=== PATIENT | female | born 1985 | race Caucasian/White ===

== ENCOUNTER 2021-12-24 11:38 | Inpatient (IN) | payer MEDICAID ==
[~2021-12-24] VITALS: Ht 167.6 cm; Wt 93.8 kg
[2021-12-24 13:13] LABS: BASOPHILS % (AUTO) 0.3 % (0-1); EOSINOPHILS % (AUTO) 0.2 % (0-6); HEMATOCRIT 37.8 % (35.0-45.0); HEMOGLOBIN 12.9 g/dl (12.0-16.0); LYMPHOCYTES # (AUTO) 0.6 X10'3 (1.1-4.8); LYMPHOCYTES % (AUTO) 4.9 % (21-51); MEAN CORPUSCULAR HEMOGLOBIN 30.7 PG (27.0-31.0); MEAN CORPUSCULAR HGB CONC 34.1 g/dL (33.0-36.5); MEAN PLATELET VOLUME 7.9 FL (7.4-10.4); MONOCYTES # (AUTO) 0.9 X10'3 (0-0.9); MONOCYTES % (AUTO) 7.9 % (2-12); NEUTROPHILS # (AUTO) 10.2 X10'3 (1.8-7.7); NEUTROPHILS % (AUTO) 86.7 % (42-75); PLATELET COUNT 178 X10'3 (140-440); RED CELL DISTRIBUTION WIDTH 12.9 % (11.5-14.5); WHITE BLOOD COUNT 11.7 X10'3 (4.5-11.0)
[2021-12-24 13:16] LABS: CLARITY,URINE CLEAR (Clear); GLUCOSE, URINE NEGATIVE (Neg); KETONES,URINE NEGATIVE (Neg); LEUKOCYTE ESTERASE ,URINE SMALL (Neg); NITRITES, URINE NEGATIVE (Neg); OCCULT BLOOD,URINE TRACE-INTACT (Neg); PH,URINE 5.5 (4.8-8.0); PROTEIN,URINE NEGATIVE (Neg); URINE HCG NEGATIVE (NEG); UROBILINOGEN,URINE 0.2 E.U/dL (0.2-1.0)
[2021-12-24 13:18] LABS: COLOR,URINE STRAW (Yellow); UA COLLECTION TYPE CLN CATCH MIDSTREAM
[2021-12-24 13:24] LABS: BACTERIA,URINE 1+ /HPF (Neg); MUCUS STRANDS NONE SEEN /LPF (Neg); RBC,URINE 0-2 /HPF (0-2); SQUAMOUS EPITHELIAL CELL,UR FEW /LPF (FEW)
[2021-12-24 13:26] LABS: ALANINE AMINOTRANSFERASE 25 U/L (12-78); ALBUMIN 4.1 G/DL (3.4-5.0); ALBUMIN/GLOBULIN RATIO 1.1 (1.1-1.5); ALKALINE PHOSPHATASE 56 IU/L (46-116); ANION GAP 13 (8-16); ASPARTATE AMINO TRANSFERASE 17 U/L (10-37); BILIRUBIN,TOTAL 0.6 MG/DL (0.1-1.0); BLOOD UREA NITROGEN 9 MG/DL (7-18); CALCIUM 9.1 MG/DL (8.5-10.1); CHLORIDE 104 MMOL/L (99-107); CREATININE 1.13 MG/DL (0.40-0.90); GLUCOSE 112 MG/DL (70-104); LIPASE 50 U/L (73-393); POTASSIUM 3.5 MMOL/L (3.5-5.1); SODIUM 140 MMOL/L (135-145); TOTAL CARBON DIOXIDE 22.8 MMOL/L (24-32); eGFR 54 ML/MIN
[2021-12-24] MEDS ORDERED: morphine 4 MG/ML inj SYRINge IV ONE (15:20)
[2021-12-24] MEDS ORDERED: normal saline 1000ml 1,000 ML IV ONE (15:20)
[2021-12-24] MEDS ORDERED: ondansetron/PF 4mg/2ml inj IV ONE (15:20)
[2021-12-24] MEDS ORDERED: ketorolac trometh. 30mg/ml inj. IV ONE (15:50)
--- NOTE | 2021-12-24 15:54 | NUR ---
LET SUE KNOW MORPHINE WAS NOT EFFECTIVE.
[2021-12-24] MEDS ORDERED: CefTRIAXone/D5W-Rocephin 1gm 50 ML IV ONE (16:10)
[2021-12-24] MEDS ORDERED: normal saline 1000ML IV soln IVB ONE (16:10)
[2021-12-24] MEDS ORDERED: tamsulosin 0.4mg capsule PO STA (16:57)
[2021-12-24] MEDS ORDERED: mag hydrox/Alum hydrox/simeth 30ml oral suspension PO PRN (17:55)
[2021-12-24] MEDS: normal saline 1000ml 1,000 ML IV SCH (17:55)
[2021-12-24] MEDS ORDERED: magnesium hydroxide 30ml (MOM) UD suspension PO PRN (17:55)
[2021-12-24] MEDS ORDERED: ondansetron/PF 4mg/2ml inj IV PRN (17:55)
[2021-12-24] MEDS ORDERED: NO HOME MEDS (18:56)
[2021-12-24] MEDS: morphine 2 MG/ML inj. syringe IV PRN (20:56)
[2021-12-24] MEDS: tamsulosin 0.4mg capsule PO SCH (20:56)
[2021-12-24] MEDS: docusate sod 100mg capsule PO SCH ×2 (20:56→20:57)
[2021-12-24] MEDS: acetaminophen 325mg tablet PO PRN (21:06)
[2021-12-25] VITALS (18 sets, daily range): BP systolic 105–140; BP diastolic 64–83
[2021-12-25] MEDS: normal saline 1000ml 1,000 ML IV SCH ×4 (03:55→17:56)
--- NOTE | 2021-12-25 06:52 | NUR ---
PAGER ID: [phone] MESSAGE: Blanche Dunham in ER bed 13 has positive blood cultures. Gram Negative rods in both aerobic and anerobic bottles
[2021-12-25] MEDS: CefTRIAXone/D5W-Rocephin 1gm 50 ML IV SCH (07:17)
[2021-12-25 07:29] LABS: BASOPHILS % (AUTO) 0.2 % (0-1); EOSINOPHILS % (AUTO) 0.1 % (0-6); HEMATOCRIT 31.8 % (35.0-45.0); LYMPHOCYTES # (AUTO) 1.1 X10'3 (1.1-4.8); LYMPHOCYTES % (AUTO) 13.7 % (21-51); MEAN CORPUSCULAR HEMOGLOBIN 31.6 PG (27.0-31.0); MEAN CORPUSCULAR HGB CONC 34.7 g/dL (33.0-36.5); MEAN PLATELET VOLUME 7.6 FL (7.4-10.4); MONOCYTES # (AUTO) 0.9 X10'3 (0-0.9); MONOCYTES % (AUTO) 10.6 % (2-12); NEUTROPHILS # (AUTO) 6.2 X10'3 (1.8-7.7); NEUTROPHILS % (AUTO) 75.4 % (42-75); PLATELET COUNT 134 X10'3 (140-440); RED BLOOD COUNT 3.49 X10'6 (4.20-5.60); RED CELL DISTRIBUTION WIDTH 12.7 % (11.5-14.5); WHITE BLOOD COUNT 8.2 X10'3 (4.5-11.0)
[2021-12-25 07:37] LABS: ANION GAP 9 (8-16); BLOOD UREA NITROGEN 6 MG/DL (7-18); BUN/CREATININE RATIO 6.2 (6.6-38.0); CALCIUM 7.7 MG/DL (8.5-10.1); CHLORIDE 111 MMOL/L (99-107); CREATININE 0.97 MG/DL (0.40-0.90); GLUCOSE 99 MG/DL (70-104); POTASSIUM 3.6 MMOL/L (3.5-5.1); SODIUM 144 MMOL/L (135-145); TOTAL CARBON DIOXIDE 23.7 MMOL/L (24-32); eGFR 64 ML/MIN
[2021-12-25] MEDS: morphine 2 MG/ML inj. syringe IV PRN (08:45)
--- NOTE | 2021-12-25 10:17 | NUR ---
relieving RN for break, Dr Clarke at bedside to evaluate pt
[2021-12-25] MEDS ORDERED: meperidine/PF 25mg/ml syringe IV PRN ×3 (11:10)
[2021-12-25] MEDS ORDERED: proCHLORperazine 10 MG/2 ml inj IV PRN (11:10)
[2021-12-25] MEDS ORDERED: ringers solution, lacted 1,000 ML IV SCH (11:10)
[2021-12-25] MEDS ORDERED: iohexol 180mg/ml 20ml inj ONE (11:10)
[2021-12-25] MEDS ORDERED: morphine 2 MG/ML inj. syringe IV PRN (11:10)
[2021-12-25] MEDS ORDERED: phenazopyridine 100mg tablet PO PRN (11:10)
[2021-12-25] MEDS ORDERED: oxybutynin 5mg tablet PO PRN (11:10)
[2021-12-25] MEDS ORDERED: ondansetron/PF 4mg/2ml inj IV PRN (11:10)
[2021-12-25] MEDS ORDERED: morphine 4 MG/ML inj SYRINge IV PRN (11:10)
[2021-12-25] MEDS ORDERED: midazolam 1 mg/ML 2ml injection ONE (11:21)
[2021-12-25] MEDS ORDERED: fentaNYL /PF 50mcg/ml 5ml ampule ONE (11:21)
[2021-12-25] MEDS ORDERED: dexamethasone sod phosphate 4mg/ml inj. ONE (11:45)
[2021-12-25] MEDS ORDERED: ondansetron/PF 4mg/2ml inj ONE (11:45)
[2021-12-25] MEDS ORDERED: LIDOcaine 2% (20mg/ml) 5ml vial ONE (11:45)
[2021-12-25] MEDS ORDERED: propofol inj 20 ML IV ONE (11:45)
[2021-12-25] MEDS ORDERED: rocuronium 10mg/ml inj IV ONE (11:45)
[2021-12-25] MEDS ORDERED: sugammadex 200mg/2ml injection IV ONE (11:46)
--- NOTE | 2021-12-25 11:59 | NUR ---
Received from OR via HOSPITAL BED, accompanied by Anesthesiologist DR FAUST and report given by Anesthesiolgist. PT PRESENTS WITH 20G RIGHT FOREARM, VSS. Addendum: 12/25/21 at 1211 by Alexia Hamilton RN, RN Amended: Links added.
[2021-12-25] MEDS ORDERED: IOHEXOL 240 MG/ML IV ONE (12:04)
--- NOTE | 2021-12-25 13:19 | NUR ---
Report called to receiving nurse LUKE KLINE. Transferred via HOSPITAL BED TO ROOM 4013A. BED IN LOW LOCKED POSITION, CALL LIGHT IN REACH, PT HOOKED UP TO VITALS MONITOR. NEW IV STARTED, 22G LEFT HAND. PT Belongings TO ROOM 4013A 2 PT BELINGING BAGS. Special Issues communicated to receiving nurse. Addendum: 12/25/21 at 1333 by Alexia Hamilton RN, RN Amended: Links added.
[2021-12-25] MEDS: acetaminophen 325mg tablet PO PRN (13:45)
[2021-12-25] MEDS: HYDROcodone/acetaminophen 5mg/325mg tablet PO PRN (17:53)
--- NOTE | 2021-12-25 18:30 | NUR ---
Patient in room ORTHO 4013. I have received report from RAISA Soler and had the opportunity to ask questions and assume patient care.
--- NOTE | 2021-12-25 18:54 | NUR ---
Problems reprioritized. Patient report given, questions answered & plan of care reviewed with SHY KLINE.
[2021-12-25] MEDS: docusate sod 100mg capsule PO SCH (20:09)
[2021-12-25] MEDS: tamsulosin 0.4mg capsule PO SCH (20:10)
[2021-12-26] MEDS: normal saline 1000ml 1,000 ML IV SCH ×2 (03:00→15:24)
[2021-12-26 05:14] LABS: BASOPHILS % (AUTO) 0.1 % (0-1); EOSINOPHILS % (AUTO) 0 % (0-6); HEMATOCRIT 31.4 % (35.0-45.0); HEMOGLOBIN 10.9 g/dl (12.0-16.0); LYMPHOCYTES # (AUTO) 0.7 X10'3 (1.1-4.8); LYMPHOCYTES % (AUTO) 8.9 % (21-51); MEAN CORPUSCULAR HEMOGLOBIN 31.5 PG (27.0-31.0); MEAN CORPUSCULAR HGB CONC 34.8 g/dL (33.0-36.5); MEAN CORPUSCULAR VOLUME 90.7 FL (78-98); MEAN PLATELET VOLUME 7.8 FL (7.4-10.4); MONOCYTES # (AUTO) 0.6 X10'3 (0-0.9); MONOCYTES % (AUTO) 7.3 % (2-12); NEUTROPHILS # (AUTO) 6.8 X10'3 (1.8-7.7); NEUTROPHILS % (AUTO) 83.7 % (42-75); PLATELET COUNT 150 X10'3 (140-440); RED BLOOD COUNT 3.46 X10'6 (4.20-5.60); RED CELL DISTRIBUTION WIDTH 13.1 % (11.5-14.5); WHITE BLOOD COUNT 8.1 X10'3 (4.5-11.0)
[2021-12-26 05:35] LABS: ALBUMIN 2.8 G/DL (3.4-5.0); ANION GAP 12 (8-16); BLOOD UREA NITROGEN 9 MG/DL (7-18); BUN/CREATININE RATIO 12.5 (6.6-38.0); CALCIUM 8.4 MG/DL (8.5-10.1); CHLORIDE 111 MMOL/L (99-107); CREATININE 0.72 MG/DL (0.40-0.90); GLUCOSE 125 MG/DL (70-104); POTASSIUM 3.6 MMOL/L (3.5-5.1); SODIUM 143 MMOL/L (135-145); TOTAL CARBON DIOXIDE 20.1 MMOL/L (24-32); eGFR > 90 ML/MIN
[2021-12-26 06:00] VITALS: BP 112/72
--- NOTE | 2021-12-26 06:20 | NUR ---
RECEIVED REPORT FROM RAISA BEGUM
--- NOTE | 2021-12-26 06:35 | NUR ---
Problems reprioritized. Patient report given, questions answered & plan of care reviewed with RAISA Gallegos.
[2021-12-26] MEDS: CefTRIAXone/D5W-Rocephin 1gm 50 ML IV SCH (07:19)
[2021-12-26] MEDS: docusate sod 100mg capsule PO SCH ×2 (07:21→19:49)
[2021-12-26] MEDS: HYDROcodone/acetaminophen 5mg/325mg tablet PO PRN (10:26)
[2021-12-26] MEDS ORDERED: temazepam 15mg capsule PO PRN (12:00)
[2021-12-26] MEDS: ketorolac tromethamine 15mg/ml inj. IV PRN (13:52)
[2021-12-26 18:00] VITALS: BP 109/70
--- NOTE | 2021-12-26 18:11 | NUR ---
gave report to norma english
--- NOTE | 2021-12-26 18:14 | NUR ---
Patient in room ORTHO 4015. I have received report from norma Gallegos and had the opportunity to ask questions and assume patient care.
[2021-12-26] MEDS: tamsulosin 0.4mg capsule PO SCH (19:49)
[2021-12-26 22:00] VITALS: BP 120/79
[2021-12-27] MEDS: ketorolac tromethamine 15mg/ml inj. IV PRN ×2 (02:40→10:18)
[2021-12-27 06:00] VITALS: BP 110/69
[2021-12-27 06:15] LABS: ALBUMIN 2.7 G/DL (3.4-5.0); ANION GAP 7 (8-16); BASOPHILS % (AUTO) 0.4 % (0-1); BLOOD UREA NITROGEN 10 MG/DL (7-18); BUN/CREATININE RATIO 15.4 (6.6-38.0); CALCIUM 7.8 MG/DL (8.5-10.1); CHLORIDE 113 MMOL/L (99-107); CREATININE 0.65 MG/DL (0.40-0.90); EOSINOPHILS # (AUTO) 0.1 X10'3 (0-0.9); EOSINOPHILS % (AUTO) 0.9 % (0-6); GLUCOSE 90 MG/DL (70-104); HEMATOCRIT 29.4 % (35.0-45.0); HEMOGLOBIN 10.2 g/dl (12.0-16.0); LYMPHOCYTES # (AUTO) 1.7 X10'3 (1.1-4.8); LYMPHOCYTES % (AUTO) 26.7 % (21-51); MEAN CORPUSCULAR HEMOGLOBIN 31.7 PG (27.0-31.0); MEAN CORPUSCULAR HGB CONC 34.9 g/dL (33.0-36.5); MEAN CORPUSCULAR VOLUME 90.8 FL (78-98); MONOCYTES # (AUTO) 0.4 X10'3 (0-0.9); NEUTROPHILS # (AUTO) 4.1 X10'3 (1.8-7.7); PLATELET COUNT 159 X10'3 (140-440); POTASSIUM 3.3 MMOL/L (3.5-5.1); RED BLOOD COUNT 3.23 X10'6 (4.20-5.60); RED CELL DISTRIBUTION WIDTH 12.7 % (11.5-14.5); SODIUM 143 MMOL/L (135-145); TOTAL CARBON DIOXIDE 22.9 MMOL/L (24-32); WHITE BLOOD COUNT 6.3 X10'3 (4.5-11.0); eGFR > 90 ML/MIN
--- NOTE | 2021-12-27 06:25 | NUR ---
received report from norma english
--- NOTE | 2021-12-27 06:30 | NUR ---
Problems reprioritized. Patient report given, questions answered & plan of care reviewed with RAISA BRANNON.
[2021-12-27] MEDS ORDERED: potassium Cl 20 mEq SR tablet PO PRN ×2 (06:50)
[2021-12-27] MEDS: docusate sod 100mg capsule PO SCH (07:52)
[2021-12-27] MEDS: CefTRIAXone/D5W-Rocephin 1gm 50 ML IV SCH (07:53)
[2021-12-27 10:00] VITALS: BP 118/73
[2021-12-27] MEDS ORDERED: LEVO-65 PO (11:13)
[2021-12-27] MEDS ORDERED: FLO0.4C PO (11:13)
--- NOTE | 2021-12-27 12:41 | NUR ---
pt d/c with instructions, understanding of instructions and w/all belongings in wheelchair to private vehicle to go home and f/u w/pcp and dr mckinnon
== END 2021-12-27 12:30 | disposition home or self-care (01) | DRG 720 ==
LOC: ER 11:39 → ED HOLD 17:59 → ORTHO 4S 12-25 14:52 → OBSVTOIN 12-25 15:46 → ORTHO 4S 12-26 12:06
PROVIDERS: ADMIT Family Medicine; ATTEND Family Medicine
PROC: BT1F1ZZ Fluoroscopy of Left Kidney, Ureter and Bladder using Low Osmolar Contrast (ICD-10-PCS; 2021-12-25)
PROC: 0T778DZ Dilation of Left Ureter with Intraluminal Device, Via Natural or Artificial Opening Endoscopic (ICD-10-PCS; principal; 2021-12-25 11:20)
DX: A41.9 Sepsis, unspecified organism (principal); N17.0 Acute kidney failure with tubular necrosis; N13.6 Pyonephrosis; B96.1 Klebsiella pneumoniae [K. pneumoniae] as the cause of diseases classified elsewhere; N20.2 Calculus of kidney with calculus of ureter; E87.6 Hypokalemia; Z20.822 Contact with and (suspected) exposure to COVID-19; Z72.0 Tobacco use; Z88.2 Allergy status to sulfonamides; Z98.891 History of uterine scar from previous surgery; Z71.6 Tobacco abuse counseling
CPT/HCPCS: 36415; 74176; 74420; 76000; 80048; 80053; 81001; 81025; 83605; 83690; 84145; 85025; 87040; 87077; 87088; 87186; 87635; 96361; 96365; 96366; 96375; 96376; 99285; A4618; C1758; C1769; C2617; G0378; J0696; J1100; J1885; J2250; J2270; J2405; J2704; J3010; J3490; J7030; Q9965; Q9966

== ENCOUNTER 2024-12-13 12:39 | Outpatient (CLI) | payer MEDICAID ==
--- NOTE | 2024-12-13 14:22 | RADIOLOGY REPORT ---
[facility] EXAMINATION: MR MRI HEAD INDICATION: HEADACHE, UNSPECIFIED COMPARISON: None TECHNIQUE: Multiplanar, multisequence magnetic resonance imaging of the brain was performed without the use of i ntravenous contrast. FINDINGS: No evidence of acute or remote infarct. No intracranial hemorrhage. No mass effect. There is periventricular/deep white matter T2/FLAIR hyperintensity is nonspecific, but most commonly associated with chronic microvascular disease. The ventricles and sulci are normal in size for age. Clear basal cisterns. Flow voids in the major intracranial vessels are maintained. No abnormality of the orbits. Paranasal sinuses and mastoid air cells are clear. No abnormality of the visualized osseous structures and extracranial soft tissues. IMPRESSION: No acute infarct, intracranial hemorrhage, mass effect, or hydrocephalus.
[2024-12-13] MEDS ORDERED: GADOTERATE MEGLUMINE 7.5 MMOL/15 ML VIAL IV ONE (18:01)
== END 2024-12-13 23:59 | disposition home or self-care (01) ==
LOC: MRI 12:39
PROVIDERS: ATTEND Family Medicine
DX: R51.9 Headache, unspecified (principal)
CPT/HCPCS: 70553; A9575